=== PATIENT | female | born 1980 | race Caucasian/White ===

== ENCOUNTER 2017-11-24 03:37 | Emergency (ER) | payer OTHER ==
[~2017-11-24] VITALS: Ht 167.6 cm; Wt 79.4 kg
[2017-11-24] MEDS ORDERED: SYNTHROID50 MCG (03:55)
[2017-11-24] MEDS ORDERED: PANADOL EXTRA500 MG (04:10)
== END 2017-11-24 15:20 | disposition home or self-care (01) ==
LOC: ER 03:37
DX: R51 Headache (principal)

== ENCOUNTER → 2017-12-31 | Emergency (ER) | payer OTHER ==
[~2017-12-31] VITALS: Ht 167.6 cm; Wt 79.4 kg
[~2017-12-31] MED LIST: FIORICET; PANADOL EXTRA500 MG; SYNTHROID50 MCG
== END | disposition home or self-care (01) ==
LOC: ER 10:09
DX: R51 Headache (principal)

== ENCOUNTER 2018-01-13 09:37 | Outpatient (CLI) | payer OTHER | END 2018-01-13 09:40 | disposition home or self-care (01) | LOC: SONOGRAMA 09:37 | DX: L94.0 Localized scleroderma [morphea] (principal) ==

== ENCOUNTER → 2018-01-19 | Outpatient (CLI) | payer OTHER | END | disposition home or self-care (01) | LOC: NUCLEAR 12:33 | DX: D69.3 Immune thrombocytopenic purpura (principal); R74.0 Nonspecific elevation of levels of transaminase and lactic acid dehydrogenase [LDH]; D73.0 Hyposplenism; K76.89 Other specified diseases of liver | CPT/HCPCS: 78215; A9541 ==